=== PATIENT | female | born 1945 | race Caucasian/White ===

== ENCOUNTER 2021-10-09 22:19 | Emergency (ER) | payer MEDICARE ==
[~2021-10-09] VITALS: Ht 170.2 cm; Wt 79.4 kg
--- NOTE | 2021-10-09 22:58 | NUR ---
BIBDAUGHTER TO ER BED 4. AAOX4. NOT IN RESP DISTRESS. AMBULATORY. BROUGHT IN FOR SYNCOAPL EPISODE WHILE SHE WAS STANDING. NO FALL SHE WAS CAUGHT BY HER DAUGHTER. PT IS NOTED WITH BP OF 95/54. AWAITING MD. EKG DONE
--- NOTE | 2021-10-09 23:10 | NUR ---
FREDA MANLEY AT BEDSIDE FOR EKG
[2021-10-09] MEDS ORDERED: IV NS 0.9% 1,000 ML BAG IV ONE (23:30)
--- NOTE | 2021-10-09 23:41 | NUR ---
LAB AT BEDSIDE
--- NOTE | 2021-10-09 23:42 | NUR ---
IV LINE ESTABLISHED , [id number]
--- NOTE | 2021-10-09 23:42 | NUR ---
[facility] [place], MYKE: [phone]
--- NOTE | 2021-10-09 23:45 | NUR ---
PT TAKEN FOR CT SCAN
--- NOTE | 2021-10-09 23:45 | NUR ---
MAYUR ROWE: [phone]
[2021-10-10 00:01] LABS: BASOPHILS # (AUTO) 0.1 K/uL (0.0-0.2); BASOPHILS % (AUTO) 0.9 % (0.0-2.0); EOSINOPHILS % (AUTO) 0.9 % (0.0-6.0); HEMATOCRIT 43 % (33-45); LYMPHOCYTES # (AUTO) 2.1 K/uL (0.8-4.8); LYMPHOCYTES % (AUTO) 18.9 % (20.0-44.0); MEAN CORPUSCULAR HGB CONC 33 g/dl (31.0-36.0); MEAN CORPUSCULAR VOLUME 92 fL (82-100); MONOCYTES # (AUTO) 0.9 K/uL (0.1-1.30); MONOCYTES % (AUTO) 8.4 % (2.0-12.0); NEUTROPHILS # (AUTO) 7.9 K/uL (1.8-8.9); NEUTROPHILS % (AUTO) 70.9 % (43.0-81.0); PLATELET COUNT (AUTO) 246 K/uL (150-450); RED BLOOD CELL COUNT(AUTO) 4.62 MIL/uL (4.0-5.2); WHITE BLOOD COUNT (AUTO) 11.2 K/uL (4.3-11.0)
--- NOTE | 2021-10-10 00:39 | NUR ---
PT AMBULATED TO BATHROOM, STEADY GAIT NOTED.
[2021-10-10 00:46] LABS: CALCIUM, SERUM 9.9 mg/dL (8.5-10.1); CARBON DIOXIDE 26 mmol/L (21-32); CHLORIDE 107 mmol/L (98-107); CREATININE 1.5 mg/dL (0.6-1.3); GLUCOSE 123 mg/dL (74-106); POTASSIUM 3.8 mmol/L (3.5-5.1); SODIUM SERUM 143 mmol/L (136-145); UREA NITROGEN, BLOOD 29 mg/dL (7-18)
--- NOTE | 2021-10-10 00:49 | NUR ---
URINE SAMPLE COLLECTED AND SENT TO LAB
[2021-10-10 01:19] LABS: ALANINE AMINOTRANSFERASE 21 U/L (12-78); ALBUMIN 3.5 g/dL (3.4-5.0); ALKALINE PHOSPHATASE 97 U/L (46-116); ASPARTATE AMINOTRANSFERASE 16 U/L (15-37); BILIRUBIN,DIRECT 0.2 mg/dL (0.0-0.2); BILIRUBIN,TOTAL 0.8 mg/dL (0.2-1.0); LIPASE 85 U/L (73-393); TOTAL PROTEIN, SERUM 7.3 g/dL (6.4-8.2)
[2021-10-10 01:31] LABS: BILIRUBIN,URINE SMALL (NEGATIVE); COLOR,URINE YELLOW (YELLOW); LEUKOCYTE ESTERASE ,URINE NEGATIVE (NEGATIVE); NITRITE, URINE NEGATIVE (NEGATIVE); PH,URINE 5.5 (5.0-8.0); PROTEIN,URINE TRACE mg/dl (NEGATIVE); UGLUCOSE NEGATIVE (NEGATIVE)
--- NOTE | 2021-10-10 01:55 | NUR ---
paged dr jauregui for cardio consult
[2021-10-10] MEDS ORDERED: POLY17PO20 PO (02:16)
--- NOTE | 2021-10-10 02:45 | NUR ---
Patient discharged to home in stable condition. Written and verbal after care instructions given. Patient verbalizes understanding of instruction.
[2021-10-10 03:06] VITALS: BP 112/60
== END 2021-10-10 03:08 | disposition home or self-care (01) ==
LOC: ER 22:22
DX: K59.00 Constipation, unspecified (principal); R39.2 Extrarenal uremia; E86.0 Dehydration; R55 Syncope and collapse; M19.90 Unspecified osteoarthritis, unspecified site; Z87.19 Personal history of other diseases of the digestive system; Z79.899 Other long term (current) drug therapy
CPT/HCPCS: 36415; 74176; 80048; 80076; 81003; 82962; 83690; 84484; 85025; 87086; 93005 ×2; 96360; 99285; J7030